=== PATIENT | male | born 1955 | race Caucasian/White ===

== ENCOUNTER 2017-03-24 16:00 | Emergency (ER) | payer SELFPAY ==
[2017-03-24] MEDS: ACETAMINOPHEN 500 MG TAB PO (20:18)
== END 2017-03-25 00:45 | disposition home or self-care (01) ==
LOC: FTE 03-25 00:45
DX: S20.219A Contusion of unspecified front wall of thorax, initial encounter (principal); S09.90XA Unspecified injury of head, initial encounter; I10 Essential (primary) hypertension; R93.0 Abnormal findings on diagnostic imaging of skull and head, not elsewhere classified; W18.2XXA Fall in (into) shower or empty bathtub, initial encounter; Y92.9 Unspecified place or not applicable
CPT/HCPCS: 70450; 71046; 93005; 99285-25